=== PATIENT | male | born 1960 | race Caucasian/White ===

== ENCOUNTER 2024-01-23 19:36 | Emergency (ER) | payer BC, SELFPAY ==
[2024-01-23 19:46] VITALS: BP 201/105
[2024-01-23 20:12] VITALS: BP 172/103
[2024-01-23 20:29] LABS: % Basophils 0.4 % (0-2); % Eosinophils 0.1 % (0-6); % Immature Granulocytes 0.3 % (0-0.5); % Lymphocytes 10.1 % (20.5-51.1); % Monocytes 17.4 % (1.7-9.3); % Neutrophils 71.7 % (42.2-75.2); Absolute Lymphocytes 0.7 10^3/uL (1.2-3.4); Absolute Monocytes 1.2 10^3/uL (0.1-0.6); Absolute Neutrophils 4.8 10^3/uL (1.4-6.5); Hematocrit 41.2 % (39.0-52.0); Hemoglobin 14.8 g/dL (13.0-18.0); Mean Corp Hgb Conc. 35.9 g/dL (33.0-37.0); Mean Corpuscular Hgb 28.8 pg (27.0-31.0); Mean Corpuscular Volume 80.2 fL (80.0-94.0); Mean Platelet Volume 10.2 fL (7.4-10.4); Nucleated Red Blood Cells % 0 % (-); Platelet Count 166 10^3/uL (130-400); Red Blood Cell Count 5.14 10^6/uL (4.70-6.10); White Blood Cell Count 6.7 10^3/uL (4.8-10.8)
--- NOTE | 2024-01-23 20:33 | ED.GENMED ---
History of Present Illness
General
Chief Complaint: Fainting/Passed Out
Source: patient
Exam Limitations: none
Time Seen by Provider: 01/23/24 20:13
History of Present Illness
History of Present Illness:
63-year-old male presents with generalized fatigue. He states he was on a flight home from [place] and had a syncopal episode. He was noted to pass out while in his chair. Bystanders noted him to be convulsing slightly. He woke up and remembers
the staff talking to him. There is no preceding chest pain. He does note that over the past several days he is felt rundown. He has had a cough and nasal congestion. No fever. 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 No leg swelling
or calf pain. He denies a headache. No other complaints
Phy Exam
Physical Exam
Physical Exam:
General: Well-appearing male no acute respiratory distress
HEENT: Normocephalic atraumatic
Heart: Regular rate and rhythm
Lungs: Clear no wheeze
Abdomen is soft nontender nondistended
Extremities: No cyanosis
Neurologic: Alert and oriented x 3 no facial asymmetry no drift
Course
Orders/Labs/Results
Orders:
Orders
01/23/24 19:50
Electrocardiogram (*1) Urgent
Reason for Study: Syncope
CT Head W/o Iv Contrast Urgent
Comment:
Reason For Exam: syncope
EKG- Treatment ONCE
01/23/24 20:20
COVID-19 Antigen Urgent
Source: Nasal Swab
Complete Blood Count/With Diff Urgent
Comprehensive Metabolic Panel Urgent
Troponin I Urgent
Influenza A+B Rapid Molecular Urgent
KADY Source: Nasal Swab
Specimen Description:
01/23/24 20:37
D-Dimer Urgent
01/23/24 20:38
0.9% Sodium Chloride 1000 ml [Nss] 1,000 ml IV BOLUS
Abnormal Lab Results
01/23/24
20:20
Absolute Lymphs (auto) 0.7 L 10^3/uL
(1.2-3.4)
Absolute Monos (auto) 1.2 H 10^3/uL
(0.1-0.6)
Lymphocytes % 10.1 L %
(20.5-51.1)
Monocytes % 17.4 H %
(1.7-9.3)
Glucose 119 H mg/dl
(70-99)
SARS-CoV-2 Antigen Positive A
(Negative)
01/23/24 20:20
01/23/24 20:20
Vital Signs
Initial and Last Documented VS:
Initial Vital Signs
Temp Pulse Resp BP Pulse Ox
98.3 F 86 20 201/105 96
01/23/24 19:46 01/23/24 19:46 01/23/24 19:46 01/23/24 19:46 01/23/24 19:46
Last Documented Vital Signs
Temp Pulse Resp BP Pulse Ox
98.3 F 81 28 159/87 96
01/23/24 19:46 01/23/24 21:45 01/23/24 21:45 01/23/24 21:09 01/23/24 21:45
MDM/Problems Addressed
Differential Diagnosis Includes:
Syncope versus seizure. Question anemia versus electrolyte abnormality versus arrhythmia. Do not suspect seizure as patient does not describe a postictal phase. He is hypertensive at triage. He has been sick with a cough and congestion as well.
Will test for COVID and flu. CT of the head ordered through triage was reviewed and read by radiology and myself and is negative for acute findings.
*Critical Care Note
Total Time (30-74mins, 75-104mins- exclusive of procedures): Not Applicable
Update Note
Update Note:
CT negative. COVID-positive. D-dimer undetectable. I suspect patient was volume depleted and dehydrated secondary to recent travel and COVID illness. He has been ambulatory here up on his feet. No indication for admission. Stable for discharge
ED Attending Note
-
Portions of this chart may have been created with voice recognition software.� Occasional wrong word or��sound alike� substitutions may have occurred due to the inherent limitations of voice recognition software.
Discharge Plan
Departure
Patient Disposition: Home (Routine Discharge)
Date of Disposition: 01/23/24
Time of Disposition: 22:09
Patient with high blood pressure during this ER visit?: No
Discharge Problem:
COVID-19, Syncope
Instructions: Syncope (Fainting) (DC)
Referrals:
Efren Alvarado CRNP [Family Provider] -
Activity Restrictions/Additional Instructions:
Stay hydrated. Return for worsening symptoms. Use Tylenol or ibuprofen if needed for fever
Interventions
Interventions:
*Risk Screen - Suicide Last Done: 01/23/24 19:46
*General Assessment Last Done: 01/23/24 19:46
*Neglect/Abuse Screening Last Done: 01/23/24 19:46
ED- Cardiac Assessment Last Done: 01/23/24 20:30
ED- Neurological Assessment Last Done: 01/23/24 20:30
ED- Pulmonary Assessment Last Done: 01/23/24 20:30
Discharge Date and Time
Print Language: GUATEMALAN
[2024-01-23] MEDS: NSS 1000 IV (20:38)
[2024-01-23 20:44] LABS: COVID-19 Antigen Positive (Negative)
[2024-01-23 20:56] LABS: Troponin I < 0.012 ng/ml
[2024-01-23 21:07] LABS: D-Dimer < 0.27 ug/mlFEU (0.00-0.50)
[2024-01-23 21:09] VITALS: BP 159/87
[2024-01-23 21:15] LABS: ALT (SGPT) 24 U/L (0-50); AST (SGOT) 34 U/L (17-59); Albumin 4.7 g/dl (3.5-5.0); Alkaline Phosphatase 50 U/L (38-126); Blood Urea Nitrogen 14 mg/dl (9-20); Calcium 9.1 mg/dl (8.4-10.2); Carbon Dioxide 25 mmol/L (22-30); Chloride 100 mmol/L (98-107); Glucose 119 mg/dl (70-99); Potassium 4.4 mmol/L (3.5-5.1); Sodium 136 mmol/L (135-145); Total Bilirubin 1.3 mg/dl (0.2-1.3); Total Protein 6.9 g/dl (6.3-8.2); eGFR > 60.00
[2024-01-23 22:06] VITALS: BP 163/88
== END 2024-01-23 22:12 | disposition home or self-care (01) ==
LOC: EMR 19:36
PROVIDERS: Emergency Medicine; Physician Assistant; EMERGENCY PHYSICIAN Emergency Medicine; FAMILY PHYSICIAN Nurse Practitioner Family
DX: R55 Syncope and collapse (principal); U07.1 COVID-19; Z11.52 Encounter for screening for COVID-19; Z88.8 Allergy status to other drugs, medicaments and biological substances
CPT/HCPCS: 99284; 96360; 70450; 80053; 84484; 85025; 85379; 87502; 87811; 93005